=== PATIENT | female | born 2000 | race African-American/Black ===

== ENCOUNTER 2020-05-06 20:18 | Emergency (ER) | payer SELFPAY ==
[2020-05-06] MEDS ORDERED: FAMOTIDINE 20 MG TAB PO ONE (20:28)
[2020-05-06] MEDS ORDERED: ONDANSETRON 4 MG ODT TAB PO ONE (20:28)
[2020-05-06] MEDS ORDERED: DICYCLOMINE 20 MG TAB PO ONE (20:28)
[2020-05-06 20:32] VITALS: BP 118/73
--- NOTE | 2020-05-06 21:04 | Emergency Department Report ---
ED N/V/D HPI - General Chief complaint: Abdominal Pain Stated complaint: EMESIS/NO APPETITE Source: patient Mode of arrival: Ambulatory Limitations: No Limitations - History of Present Illness Initial comments: Patient is a nulliparous 19-year-old white female with no past medical history presents to the ED with complaint of acute onset persistent diffuse body aches and pains, generalized weakness, lack of appetite, nausea and vomiting and diffuse abdominal pain for the last 2 weeks intermittently, worse in the last 3 days. Patient states that she has not eaten anything in the last 2 days because of lack of appetite and nausea. Patient denies dizziness, syncope, chest pain, shortness of breath, dysuria, urinary frequency and urgency, diarrhea, vaginal bleeding or vaginal discharge, cough, sore throat, nasal and sinus congestion or headache. MD complaint: nausea, vomiting, abdominal pain, other (Lack of appetite, generalized weakness) -: Sudden, week(s) (2) Description of Vomiting: food contents Associated Abdominal Pain: Yes (diffuse) Location: diffuse Radiation: none Severity: moderate Pain Scale: 5 Quality: aching, dull Consistency: intermittent Improves with: none Worsens with: none Associated Symptoms: denies other symptoms, loss of appetite, malaise, nausea/vomiting. denies: myalgias, chest pain, cough, diaphoresis, fever/chi lls, headaches, rash, dysuria, shortness of breath, syncope, weakness, other - Related Data Previous Rx's Medication Instructions Recorded Last Taken Type Dicyclomine [Bentyl] 20 mg PO Q6H PRN #20 tablet 05/06/20 Unknown Rx Famotidine [Pepcid] 20 mg PO BID #20 tablet 05/06/20 Unknown Rx Ibuprofen [Motrin] 400 mg PO Q8H PRN #24 tablet 05/06/20 Unknown Rx Ondansetron [Zofran Odt] 4 mg PO Q6HR PRN #20 tab.rapdis 05/06/20 Unknown Rx cephALEXin [Keflex] 500 mg PO Q12HR #20 cap 05/06/20 Unknown Rx Allergies Allergy/AdvReac Type Severity Reaction Status Date / Time No Known Allergies Allergy Unverified 05/06/20 20:27 ED Review of Systems ROS: Stated complaint: EMESIS/NO APPETITE Other details as noted in HPI Constitutional: denies: chills, fever Eyes: denies: eye pain, eye discharge, vision change ENT: denies: ear pain, throat pain Respiratory: denies: cough, shortness of breath, wheezing Cardiovascular: denies: chest pain, palpitations Endocrine: no symptoms reported Gastrointestinal: abdominal pain, nausea, vomiting. denies: diarrhea Genitourinary: denies: urgency, dysuria, discharge Musculoskeletal: denies: back pain, joint swelling, arthralgia Skin: denies: rash, lesions Neurological: weakness. denies: headache, paresthesias Psychiatric: denies: anxiety, depression Hematological/Lymphatic: denies: easy bleeding, easy bruising ED Past Medical Hx - Past Medical History Previous Medical History?: No - Surgical History Past Surgical History?: Yes Additional Surgical History: titanium ruiz in left leg - Social History Smoking Status: Current Every Day Smoker Substance Use Type: None - Medications Home Medications: Home Medications Medication Instructions Recorded Confirmed Last Taken Type Dicyclomine [Bentyl] 20 mg PO Q6H PRN #20 tablet 05/06/20 Unknown Rx Famotidine [Pepcid] 20 mg PO BID #20 tablet 05/06/20 Unknown Rx Ibuprofen [Motrin] 400 mg PO Q8H PRN #24 tablet 05/06/20 Unknown Rx Ondansetron [Zofran Odt] 4 mg PO Q6HR PRN #20 tab.rapdis 05/06/20 Unknown Rx cephALEXin [Keflex] 500 mg PO Q12HR #20 cap 05/06/20 Unknown Rx ED Physical Exam - General Limitations: No Limitations General appearance: alert, in no apparent distress - Head Head exam: Present: atraumatic, normocephalic, normal inspection - Eye Eye exam: Present: normal appearance, PERRL, EOMI Pupils: Present: normal accommodation - ENT ENT exam: Present: normal exam, normal orophraynx, mucous membranes moist, TM's normal bilaterally, normal external ear exam - Neck Neck exam: Present: normal inspection, full ROM - Respiratory Respiratory exam: Present: normal lung sounds bilaterally. Absent: respiratory distress, wheezes, rales, rhonchi, chest wall tenderness, accessory muscle use, decreased breath sounds, prolonged expiratory - Cardiovascular Cardiovascular Exam: Present: regular rate, normal rhythm, normal heart sounds. Absent: systolic murmur, diastolic murmur, rubs, gallop - GI/Abdominal GI/Abdominal exam: Present: soft, normal bowel sounds. Absent: tenderness, guarding, rebound, hyperactive bowel sounds, hypoactive bowel sounds, organomegaly - Extremities Exam Extremities exam: Present: normal inspection, full ROM, normal capillary refill - Back Exam Back exam: Present: normal inspection, full ROM. Absent: tenderness, CVA tenderness (R), CVA tenderness (L), muscle spasm, paraspinal tenderness - Neurological Exam Neurological exam: Present: alert, oriented X3, CN II-XII intact, normal gait, reflexes normal - Psychiatric Psychiatric exam: Present: normal affect, normal mood - Skin Skin exam: Present: warm, dry, intact, normal color. Absent: rash ED Course Vital Signs 05/06/20 20:25 Temperature 98.4 F Pulse Rate 80 Respiratory 16 Rate Blood Pressure 118/73 O2 Sat by Pulse 98 Oximetry ED Medical Decision Making - Lab Data Result diagrams: 05/06/20 20:34 05/06/20 20:34 - Medical Decision Making This is a nulliparous 19-year-old white female with no past medical history presents to the ED with complaint of acute onset persistent diffuse body aches and pains, generalized weakness, lack of appetite, nausea and vomiting and diffuse abdominal pain for the last 2 weeks intermittently, worse in the last 3 days. Patient states that she has not eaten anything in the last 2 days because of lack of appetite and nausea. In the ED, patient is alert and oriented x3 and is not in any distress. Patient is hemodynamically stable. Lab test results were reviewed and are all nonactionable except for urinalysis that showed significant urinary tract infection. Patient was treated in the ED for nausea and vomiting, also given antacids and antispasmodics. On reevaluation, patient's pain is well controlled medications, patient nausea and vomiting resolved in the ED. Patient passed oral fluid challenge in the ED. Patient was therefore discharged home on antibiotics, antiemetics and antacids prescri ptions and was advised to follow-up with her primary care physician in 7 to 10 days for reevaluation or return to the ED immediately if symptoms get worse. - Differential Diagnosis UTI; GERD; gastroenteritis; ovarian cyst; gastritis; viral syndrome Critical care attestation.: If time is entered above; I have spent that time in minutes in the direct care of this critically ill patient, excluding procedure time. ED Disposition Clinical Impression: Nausea and vomiting in adult patient, Acute urinary tract infection, Viral gastroenteritis Abdominal pain Qualifiers: Abdominal location: generalized Qualified Code(s): R10.84 - Generalized abdominal pain Disposition: TO HOME OR SELFCARE Is pt being admited?: No Does the pt Need Aspirin: No Condition: Stable Instructions: Nausea and Vomiting, Adult, [id number], Urinary Tract Infection, Adult, [id number], Abdominal Pain, Adult, [id number], Abdominal Pain (ED), Viral Gastroenteritis, Adult, [id number] Additional Instructions: All lab test results were reviewed and are all nonactionable except for significant urinary tract infection in urinalysis. Therefore your symptoms are likely due to the urinary tract infection that appears to be significant. Therefore take medication with food, drink plenty of fluids and follow-up with your primary care physician in 5 to 7 days for reevaluation. Return to the ED immediately if symptoms get worse. Prescriptions: Dicyclomine [Bentyl] 20 mg PO Q6H PRN #20 tablet PRN Reason: Abdominal pain cephALEXin [Keflex] 500 mg PO Q12HR #20 cap Ibuprofen [Motrin] 400 mg PO Q8H PRN #24 tablet PRN Reason: Pain , Severe (7-10) Famotidine [Pepcid] 20 mg PO BID #20 tablet Ondansetron [Zofran Odt] 4 mg PO Q6HR PRN #20 tab.rapdis PRN Reason: Nausea Referrals: [facility] [Provider Group] - 7-10 days Time of Disposition: 22:42 Print Language: GEORGIAN
[2020-05-06 21:09] LABS: Basophils % (Auto) 0.2 % (0.0-1.8); Eosinophils # (Auto) 0.2 K/mm3 (0.0-0.4); Eosinophils % (Auto) 1.4 % (0.0-4.3); Hematocrit 40.8 % (30.3-42.9); Hemoglobin 13.9 gm/dl (10.1-14.3); Lymphocytes # (Auto) 2.7 K/mm3 (1.2-5.4); Mean Corpuscular HGB Conc 34 % (30-34); Mean Corpuscular Volume 97 fl (79-97); Monocytes % (Auto) 8.7 % (0.0-7.3); Platelet Count 208 K/mm3 (140-440); Red Blood Count 4.19 M/mm3 (3.65-5.03); Red Cell Distribution Width 13.7 % (13.2-15.2)
[2020-05-06 21:23] LABS: Bilirubin,Urine NEG (Negative); Blood,Urine MOD (Negative); Color,Urine Straw (Yellow); Mucus,Urine FEW /HPF; Protein,Urine <15 mg/dL mg/dL (Negative); Urobilinogen,Urine < 2.0 mg/dL (<2.0)
[2020-05-06 21:29] LABS: Alanine Aminotransferase 12 units/L (7-56); Albumin 4.5 g/dL (3.9-5); Blood Urea Nitrogen 8 mg/dL (7-17); Hemolysis Index 6
[2020-05-06 21:32] LABS: BUN/Creatinine Ratio 13
[2020-05-06] MEDS ORDERED: cephALEXin 500 MG CAP PO ONE (22:02)
== END 2020-05-06 22:48 | disposition home or self-care (01) ==
LOC: ED 20:18
DX: A08.4 Viral intestinal infection, unspecified (principal); N39.0 Urinary tract infection, site not specified; F17.200 Nicotine dependence, unspecified, uncomplicated; Z79.899 Other long term (current) drug therapy
CPT/HCPCS: 36415; 80053; 81001; 83690; 84703; 85025; 87086; 99283; Q0162